=== PATIENT | female | born 1960 | race Caucasian/White ===

== ENCOUNTER 2017-07-15 20:32 | Emergency (ER) | payer OTHER ==
[~2017-07-15] VITALS: Ht 157.5 cm; Wt 59.0 kg
[2017-07-15] MEDS ORDERED: PROAIR HFA8.5 GM INH (21:15)
[2017-07-15] MEDS ORDERED: TOPROL XL100 MG PO (21:15)
[2017-07-15] MEDS ORDERED: METHAZOLAMIDE50 MG PO (21:16)
[2017-07-15] MEDS ORDERED: TRAZODONE HCL50 MG PO (21:16)
[2017-07-15] MEDS ORDERED: HYDROXYZINE HCL25 M1 PO (21:16)
[2017-07-15] MEDS ORDERED: NORCO 5-325 TA1 EACH PO (21:32)
[2017-07-15] MEDS ORDERED: VENTOLIN HFA 1818 GM INH (21:36)
[2017-07-15 22:17] VITALS: BP 130/82
== END 2017-07-15 22:18 | disposition home or self-care (01) ==
LOC: M.ERS 20:32
DX: M79.672 Pain in left foot (principal); F17.210 Nicotine dependence, cigarettes, uncomplicated; Z88.8 Allergy status to other drugs, medicaments and biological substances